=== PATIENT | male | born 1940 | race Caucasian/White ===

== ENCOUNTER 2024-04-21 10:52 | Observation (INO) ==
[2024-04-21] MEDS: 0.9 % SODIUM CHLORIDE 1,000 ML IV ONE (11:14)
[2024-04-21 11:31] LABS: Basophils # (Auto) 0.08 K/mcL (0.00-0.30); Basophils % (Auto) 0.7 % (0.0-2.0); Eosinophils # (Auto) 0.03 K/mcL (0.00-0.70); Eosinophils % (Auto) 0.3 % (0.0-7.0); Hematocrit 41.5 % (40.1-51.0); Hemoglobin 13.6 g/dL (13.7-17.5); Lymphocytes # (Auto) 0.79 K/mcL (1.50-4.80); Lymphocytes % (Auto) 7.2 % (15.5-49.0); Mean Cell Volume 95.6 fL (80.0-100.0); Mean Corpuscular HGB Conc 32.8 g/dL (31.0-36.0); Mean Platelet Volume 9.8 fL (8.8-12.5); Monocytes # (Auto) 0.83 K/mcL (0.10-0.90); Monocytes % (Auto) 7.5 % (1.0-12.0); Neutrophils % (Auto) 84.2 % (38.0-78.0); Platelet Count 185 K/mcL (140-440); RBC 4.34 M/mcL (4.63-6.08); Red Cell Distribution Width 12.9 % (11.5-14.5)
[2024-04-21 11:51] LABS: ALT/SGPT 19 U/L (<40); AST/SGOT 34 U/L (<40); Albumin 3.9 gm/dL (3.2-5.2); Albumin/Globulin Ratio 1.5 (1.0-2.3); Alkaline Phosphatase 85 U/L (39-117); Bilirubin,Total 0.7 mg/dL (0.1-1.0); Blood Urea Nitrogen 17 mg/dL (8-23); Calcium 9.5 mg/dL (8.6-10.4); Carbon Dioxide 22 mmol/L (22-30); Chloride 106 mmol/L (96-108); Globulin 2.6 gm/dL (2.2-3.7); Glomerular Filtration Rate 81; Glucose 112 mg/dL (70-105); Potassium 4.4 mmol/L (3.3-5.1); Sodium 139 mmol/L (133-145)
[2024-04-21 14:43] LABS: Appearance,Urine Clear (Clear); Bilirubin,Urine Negative (Negative); Color,Urine Yellow; Glucose,Urine (UA) Negative (Negative); Ketones,Urine Negative (Negative); Leukocyte Esterase,Urine Negative /uL (Negative); Nitrate,Urine Negative (Negative); PH,Urine 5.5 (5.0-9.0); Protein,Urine 100 mg/dL (Negative); Specific Gravity,Urine >= 1.030 (1.000-1.035); Urine Blood Small ery/mcL (Negative); Urine RBC 1 /hpf (0-3); Urine Squamous Epithelial Cell 2 /hpf (0-4); Urine WBC 1 /hpf (0-4); Urobilinogen,Urine Normal
[2024-04-21] MEDS ORDERED: ONDANSETRON 4 MG/2 ML VIAL IV PRN (18:23)
[2024-04-21] MEDS ORDERED: POTASSIUM CHLORIDE 40 MEQ in DEXTROSE 5% IN WATER 500 ML IV PRN (18:23)
[2024-04-21] MEDS ORDERED: POTASSIUM CHLORIDE 20 MEQ TABLET PO PRN ×2 (18:23)
[2024-04-21] MEDS ORDERED: MAGNESIUM SULFATE 2 GM/50 ML BAG IV PRN (18:23)
[2024-04-21] MEDS ORDERED: METOCLOPRAMIDE 10 MG/2 ML VIAL IV PRN (18:23)
[2024-04-21] MEDS ORDERED: POLYETHYLENE GLYCOL 3350 17 GM PACKET PO PRN (18:23)
[2024-04-21] MEDS ORDERED: IPRATROPIUM/ALBUTEROL 3 ML AMPUL.NEB NEB PRN (18:23)
[2024-04-21] MEDS ORDERED: SENNOSIDES 1 TABLET PO PRN (18:23)
[2024-04-21] MEDS ORDERED: ACETAMINOPHEN 325 MG TABLET PO PRN (18:23)
[2024-04-21] MEDS: FUROSEMIDE 100 MG/10 ML VIAL IV ONE ×2 (20:37→20:38)
[2024-04-21] MEDS: DOCUSATE SODIUM 100 MG CAPSULE PO SCH (20:38)
[2024-04-21] MEDS: TAMSULOSIN 0.4 MG CAPSULE PO SCH (20:38)
[2024-04-21] MEDS: APIXABAN 5 MG TABLET PO SCH (20:38)
[2024-04-21] MEDS: LOSARTAN 50 MG TABLET PO SCH (20:38)
[2024-04-21] MEDS: GABAPENTIN 300 MG CAPSULE PO SCH (20:39)
[2024-04-21] MEDS: 0.9 % SODIUM CHLORIDE 10 ML SYRINGE IV SCH (20:39)
[2024-04-21] MEDS ORDERED: ENOXAPARIN 40 MG/0.4 ML SYRINGE SQ SCH (21:00)
[2024-04-22 06:43] LABS: ALT/SGPT 18 U/L (<40); AST/SGOT 33 U/L (<40); Albumin 3.6 gm/dL (3.2-5.2); Albumin/Globulin Ratio 1.3 (1.0-2.3); Alkaline Phosphatase 86 U/L (39-117); Bilirubin,Direct 0.4 mg/dL (<0.3); Bilirubin,Total 0.9 mg/dL (0.1-1.0); Blood Urea Nitrogen 19 mg/dL (8-23); Calcium 9.2 mg/dL (8.6-10.4); Carbon Dioxide 23 mmol/L (22-30); Chloride 105 mmol/L (96-108); Globulin 2.7 gm/dL (2.2-3.7); Glomerular Filtration Rate 77; Glucose 122 mg/dL (70-105); Lactate Dehydrogenase 187 U/L (135-225); Phosphorous 2.7 mg/dL (2.5-4.5); Potassium 3.7 mmol/L (3.3-5.1); Sodium 139 mmol/L (133-145); Triglycerides 67 mg/dL (<150); Uric Acid 5.7 mg/dL (2.5-8.0)
[2024-04-22] MEDS: AZITHROMYCIN 250 MG TABLET PO SCH (08:14)
[2024-04-22] MEDS: FUROSEMIDE 100 MG/10 ML VIAL IV ONE (10:19)
[2024-04-22] MEDS: LIDOCAINE 4% TOP PATCH TOPICAL SCH (10:29)
[2024-04-22] MEDS ORDERED: FAMOTIDINE 20 MG TABLET PO SCH (17:00)
== END 2024-04-22 13:04 ==
LOC: ED 10:52 → MEDSUR 10:52
PROVIDERS: ADMIT Internal Medicine; ATTEND Internal Medicine